=== PATIENT | male | born 1975 | race Caucasian/White ===

== ENCOUNTER → 2023-07-19 | Emergency (ER) | payer BC ==
[2023-07-19 13:17] LABS: Absolute Basophils 0.1 K/uL (0-0.5); Absolute Lymphocytes (CBC) 1.8 K/uL (0.7-4.9); Basophils % 0.7 % (0-1.3); Lymphocytes % 24.8 % (15.3-44.8); MPV 9.5 fL (7.6-11.3); Platelets 168 thou/uL (152-406); RBC Red Blood Cell Count 4.95 M/uL (4.33-5.43)
[2023-07-19 13:21] LABS: Anion Gap 9.6 mEq/L (5.0-15.0); Magnesium 1.9 mg/dL (1.6-2.4); Potassium 3.6 mEq/L (3.5-5.1); Troponin High Sensitivity 3.4 pg/mL (<58.9)
--- NOTE | 2023-07-19 14:42 | RAD REPORT ---
EXAM DESCRIPTION: Gabby Single View07/19/2023 1:22 pm CLINICAL HISTORY: Lightheaded COMPARISON: No comparisons TECHNIQUE: Portable AP view of the chest. FINDINGS: The lungs are clear. No pneumothorax or effusion. The cardiomediastinal contours are unre markable. IMPRESSION: No acute cardiopulmonary process.
--- NOTE | 2023-07-19 15:18 | EDPHYS ---
Physician Documentation [facility] Name: Johnnie Posada Age: 47 yrs Sex: Male : 1975 Arrival Date: 07/19/2023 Time: 11:39 Bed 14 Private MD: ED Physician Adolfo Barr HPI: 07/18 15:17 This 47 yrs old Male presents to ER via Ambulatory with complaints of Doesn't Feel ms3 Right. 15:17 47-year-old male with past medical history of hypertension presents to the emergency ms3 department for feeling "weird." Patient states 30 minutes prior to arrival he developed blurred vision and was disoriented. Patient endorses nausea. Patient denies vomiting, chest pain, shortness of breath.. Historical: - Allergies: 12:13 No Known Allergies; kd3 - Immunization history:: Adult Immunizations up to date. - Social history:: Smoking status: Reported history of juuling and/or vaping. ROS: 15:17 Constitutional: Negative for fever, and chills. Neck: Negative for injury, pain, and ms3 swelling, Cardiovascular: Negative for chest pain, and palpitations. Respiratory: Negative for shortness of breath, cough, wheezing, and pleuritic chest pain, Abdomen/GI: Negative for abdominal pain, nausea, vomiting, diarrhea, and constipation, MS/Extremity: Negative for injury and deformity, Skin: Negative for injury, rash, and discoloration, 15:17 Neuro: Positive for Lightheaded, Exam: 12:08 ECG was reviewed by the Attending Physician. ms3 15:17 Constitutional: This is a well developed, well nourished patient who is awake, alert, ms3 and in no acute distress. Head/Face: Normocephalic, atraumatic. Chest/axilla: Normal chest wall appearance and motion. Nontender with no deformity. Cardiovascular: Regular rate and rhythm with a normal S1 and S2. No gallops, murmurs, or rubs. Normal PMI, no JVD. No pulse deficits. Respiratory: Lungs have equal breath sounds bilaterally, clear to auscultation and percussion. No rales, rhonchi or wheezes noted. No increased work of breathing, no retractions or nasal flaring. Abdomen/GI: Soft, non-tender, with normal bowel sounds. No distension or tympany. No guarding or rebound. No evidence of tenderness throughout. Skin: Warm, dry with normal turgor. Normal color with no rashes, no lesions, and no evidence of cellulitis. MS/ Extremity: Pulses equal, no cyanosis. Neurovascular intact. Full, normal range of motion. Neuro: Awake and alert, GCS 15, oriented to person, place, time, and situation. Cranial nerves II-XII grossly intact. Motor strength 5/5 in all extremities. Sensory grossly intact. Cerebellar exam normal. Normal gait. Vital Signs: 12:09 BP 183 / 118; Pulse 68; Resp 17; Temp 98(O); Pulse Ox 97% on R/A; Weight 106.59 kg; kd3 Height 5 ft. 10 in. ; Pain 0/10; 14:24 BP 135 / 116; Pulse 85; Resp 18; Pulse Ox 99% ; cp4 16:00 BP 138 / 85; Pulse 74; Resp 18; Pulse Ox 99% ; cp4 12:09 Body Mass Index 33.72 (106.59 kg, 177.8 cm) kd3 12:09 Pain Scale: Adult kd3 MDM: 12:12 Patient medically screened. ms3 15:17 Differential Diagnosis Arrhythmia vs Electrolyte abnormality vs Lightheaded . Data ms3 reviewed: vital signs, nurses notes, lab test result(s), EKG, radiologic studies, and as a result, I will discharge patient. Independent interpretation of the following test(s) in the Emergency Department EKG: See my EKG interpretation above. Historians other than the Patient: Spouse/Significant Other: Patient's . Care significantly affected by the following chronic conditions: Hypertension. Counseling: I had a detailed discussion with the patient and/or guardian regarding the historical points, exam findings, and any diagnostic results supporting the discharge/admit diagnosis, lab results, radiology results, the need for outpatient follow up, to return to the emergency department if symptoms worsen or persist or if there are any questions or concerns that arise at home. Special discussion: I discussed with the patient/guardian in detail that at this point there is no indication for admission to the hospital. It is understood, however, that if the symptoms persist or worsen the patient needs to return immediately for re-evaluation. ED course: Discussed labs, EKG, chest x-ray findings with patient and his . Patient to follow-up with primary care physician in 2 to 3 days. Patient has understand and agree with plan. All questions were answered. Return precautions discussed include worsening symptoms, or any other concerns. On reevaluation patient is alert and oriented x 4, no apparent distress, nontoxic-appearing, ambulatory emerged primary, speaking full sentences. 07/18 12:12 Order name: Basic Metabolic Panel; Complete Time: 14:03 ms3 07/18 12:12 Order name: CBC with Diff; Complete Time: 14:03 ms3 07/18 12:12 Order name: Magnesium; Complete Time: 14:03 ms3 07/18 12:12 Order name: Troponin HS; Complete Time: 14:03 ms3 07/18 12:12 Order name: XRAY Chest (1 view); Complete Time: 14:46 ms3 07/18 12:12 Order name: EKG; Complete Time: 12:13 ms3 07/18 12:12 Order name: Cardiac monitoring; Complete Time: 14:18 ms3 07/18 12:12 Order name: EKG - Nurse/Tech; Complete Time: 12:15 ms3 07/18 12:12 Order name: IV Saline Lock; Complete Time: 12:54 ms3 07/18 12:12 Order name: Labs collected and sent; Complete Time: 12:54 ms3 07/18 12:12 Order name: O2 Per Protocol; Complete Time: 14:18 ms3 07/18 12:12 Order name: O2 Sat Monitoring; Complete Time: 14:18 ms3 EC:08 Rate is 75 beats/min. Rhythm is regular. QRS [place] is Normal. NH interval is normal. QRS ms3 interval is normal. Clinical impression: NSR w/ Non-specific ST/T Changes. Interpreted by me. Reviewed by me. Administered Medications: No medications were administered Disposition Summary: 07/19/23 15:17 Discharge Ordered Notes: Location: Home ms3 Condition: Stable ms3 Diagnosis - Lightheaded ms3 - Essential (primary) hypertension ms3 Followup: ms3 - With: Cedric Meza MD - When: 2 - 3 days - Reason: Recheck today's complaints Discharge Instructions: - Discharge Summary Sheet ms3 - Hypertension, Adult ms3 - DASH Eating Plan ms3 Forms: - Medication Reconciliation Form ms3 - Thank You Letter ms3 - Antibiotic Education ms3 - Prescription Opioid Use ms3 - Patient Portal Instructions ms3 - Leadership Thank You Letter ms3 Signatures: Dispatcher [employer] Adolfo Cardona DO DO ms3 Carmen Crow, RN RN kd3
--- NOTE | 2023-07-19 15:18 | ER ---
Nurse's Notes [facility] Name: Johnnie Posada Age: 47 yrs Sex: Male : 1975 Arrival Date: 07/19/2023 Time: 11:39 Bed 14 Private MD: Diagnosis: Lightheaded;Essential (primary) hypertension Presentation: 07/18 12:11 Chief complaint: Patient states: I feel weird and flushed. I just started propanolol. I kd3 took it this morning like im supposed to but my blood pressure is super high. I had an episode earlier of blurred vision and dizziness. I am also on testosterone. This all started today. Coronavirus screen: Vaccine status: Patient reports being unvaccinated. Ebola Screen: No symptoms or risks identified at this time. Initial Sepsis Screen: Does the patient meet any 2 criteria? No. Patient's initial sepsis screen is negative. Does the patient have a suspected source of infection? No. Patient's initial sepsis screen is negative. Risk Assessment: Do you want to hurt yourself or someone else? Patient reports no desire to harm self or others. Onset of symptoms was July 19, 2023. 12:11 Method Of Arrival: Ambulatory kd3 12:11 Acuity: EARL 3 kd3 Triage Assessment: 12:13 General: Appears in no apparent distress. Behavior is calm, cooperative. Pain: Denies kd3 pain. Historical: - Allergies: 12:13 No Known Allergies; kd3 - Immunization history:: Adult Immunizations up to date. - Social history:: Smoking status: Reported history of juuling and/or vaping. Screenin:24 [facility] ED Fall Risk Assessment (Adult) History of falling in the last 3 months, cp4 including since admission No falls in past 3 months (0 pts) Confusion or Disorientation No (0 pts) Intoxicated or Sedated No (0 pts) Impaired Gait No (0 pts) Mobility Assist Device Used No (0 pt) Altered Elimination No (0 pt) Score/Fall Risk Level 0 - 2 = Low Risk Oriented to surroundings, Maintained a safe environment, Educated pt \T\ family on fall prevention, incl call for assistance when getting out of bed, Assessed \T\ reinforced patient's understanding of fall precautions, Hourly rounding (assess needs \T\ fall precautionary measures) done. Abuse screen: Denies threats or abuse. Nutritional screening: No deficits noted. Tuberculosis screening: No symptoms or risk factors identified. Assessment: 14:24 General: Appears in no apparent distress. Behavior is calm, cooperative, appropriate cp4 for age. Pain: Denies pain. Cardiovascular: No deficits noted. Denies chest pain. Vital Signs: 12:09 BP 183 / 118; Pulse 68; Resp 17; Temp 98(O); Pulse Ox 97% on R/A; Weight 106.59 kg; kd3 Height 5 ft. 10 in. ; Pain 0/10; 14:24 BP 135 / 116; Pulse 85; Resp 18; Pulse Ox 99% ; cp4 16:00 BP 138 / 85; Pulse 74; Resp 18; Pulse Ox 99% ; cp4 12:09 Body Mass Index 33.72 (106.59 kg, 177.8 cm) kd3 12:09 Pain Scale: Adult kd3 ED Course: 11:43 Patient arrived in ED. mg5 11:58 Adolfo Barr DO is Attending Physician. ms3 12:13 Triage completed. kd3 12:13 Arm band placed on left wrist. kd3 12:54 Initial lab(s) drawn, by me, sent to lab. EKG done, by ED staff. Inserted saline lock: [id number] 20 gauge in right antecubital area, using aseptic technique. Blood collected. 13:24 XRAY Chest (1 view) In Process Unspecified. EDMS 14:15 Kassidy Escoto is Primary Nurse. cp4 14:24 Bed in low position. Call light in reach. Side rails up X 1. cp4 15:15 Cedric Meza MD is Referral Physician. ms3 16:19 Provided Education on: hypertension. cp4 16:19 No provider procedures requiring assistance completed. intact, bleeding controlled, No cp4 redness/swelling at site. Pressure dressing applied. Administered Medications: No medications were administered Medication: 14:24 VIS not applicable for this client. cp4 Outcome: 15:17 Discharge ordered by . ms3 16:19 Discharged to home ambulatory, cp4 16:19 Condition: stable 16:19 Discharge instructions given to patient, Instructed on discharge instructions, follow up and referral plans. Demonstrated understanding of instructions, follow-up care, 16:20 Patient left the ED. cp4 Signatures: Dispatcher [employer] EDVT Adolfo Barr DO DO ms3 Carmen Crow, RN RN kd3 Heather De La Paz mg5 Kassidy Escoto cp4 Moustapha Dial [id number]
[2023-07-19 16:57] VITALS: BP 138/85; TEMP 98; O2SAT 99
== END ==
LOC: ER 11:39
DX: R42 Dizziness and giddiness (principal); I10 Essential (primary) hypertension
CPT/HCPCS: 36415; 71045; 80048; 83735; 84484; 85025; 93005; 99284